=== PATIENT | male | born 1955 ===

== ENCOUNTER 2020-08-03 17:43 | Observation (INO) ==
[2020-08-03] MEDS ORDERED: GLUCAGON 1 MG VIAL IM PRN (21:28)
[2020-08-03] MEDS ORDERED: DEXTROSE 50% 25 GM/50 ML VIAL IV PRN (21:28)
[2020-08-03] MEDS ORDERED: ONDANSETRON 4 MG/2 ML VIAL IV PRN (21:28)
[2020-08-03] MEDS ORDERED: ACETAMINOPHEN 325 MG TABLET PO PRN (21:28)
[2020-08-03 22:27] LABS: Albumin 3.2 G/DL (3.4-5.0); Calcium 8.6 MG/DL (8.5-10.1); Osmolality,Calculated 292.4 MOS/KG (273-304); Potassium 4.7 MMOL/L (3.5-5.1)
[2020-08-04] MEDS: ENOXAPARIN 30 MG/0.3 ML SYRINGE SUBCUT SCH ×2 (04:13→22:25)
[2020-08-04 08:24] LABS: Protein/Creatinine Ratio,Urine 0.2 RATIO
[2020-08-04 08:33] LABS: Basophils # 0.1 10*3/uL (0.0-0.2); Basophils % 0.8 % (0.0-0.8); Eosinophils # 0.1 10*3/uL (0.0-0.87); Eosinophils % 0.8 % (0.00-10.9); Hematocrit 41.7 VOL% (42.0-52.0); Hemoglobin 12.8 GM/DL (14.0-18.0); Immature Granulocytes % 0.7 %; Immature Granulocytes Absolute 0.06 #; Lymphocytes # 1.6 10*3/uL (1.4-4.0); Lymphocytes % 18.1 % (21.2-54.2); Mean Corpuscular HGB Conc 30.7 GM/DL (32-36); Mean Corpuscular Volume 86.9 FL (87-102); Mean Platelet Volume 10.7 FL (9.6-12.0); Monocytes % 11.4 % (1.7-12.7); Neutrophils % 68.2 % (38.7-73.9); Platelet Count 201 T/CUMM (130-400); Red Cell Distribution Width 17.8 % (9.3-17.3)
[2020-08-04 09:00] LABS: Albumin 3.2 G/DL (3.4-5.0); Bilirubin,Total 1.2 MG/DL (0.2-1.0); Calcium 8.6 MG/DL (8.5-10.1); Osmolality,Calculated 289.4 MOS/KG (273-304); Potassium 4.5 MMOL/L (3.5-5.1); Total Protein 7.1 G/DL (6.4-8.3)
[2020-08-04] MEDS ORDERED: FUROSEMIDE 40 MG TABLET PO SCH (09:00)
[2020-08-04] MEDS ORDERED: LEVOFLOXACIN 750 MG TABLET PO SCH (09:00)
[2020-08-04] MEDS: INSULIN REGULAR 100 UNIT/ML SUBCUT SCH ×4 (09:21→21:44)
[2020-08-04] MEDS: PANTOPRAZOLE 40 MG TABLET PO SCH (09:29)
[2020-08-04] MEDS: ASPIRIN EC 81 MG TABLET PO SCH (09:30)
[2020-08-04] MEDS ORDERED: SKIN HEALING OINT (AQUAPHOR) 50 GM TUBE TOP PRN (11:17)
[2020-08-04] MEDS ORDERED: CLOTRIMAZOLE 1% CREAM 15 GM TUBE TOP PRN (11:17)
[2020-08-04] MEDS ORDERED: FUROSEMIDE 40 MG/4 ML VIAL IM SCH (16:00)
[2020-08-04] MEDS: NYSTATIN CREAM 15 GM TUBE TOP SCH ×2 (16:04→21:56)
[2020-08-04] MEDS: carvediloL 3.125 MG TABLET PO SCH (21:44)
[2020-08-04] MEDS ORDERED: ZALEPLON 5 MG CAPSULE PO PRN (21:54)
[2020-08-05 06:13] LABS: Basophils # 0.1 10*3/uL (0.0-0.2); Basophils % 0.9 % (0.0-0.8); Eosinophils # 0.1 10*3/uL (0.0-0.87); Eosinophils % 0.9 % (0.00-10.9); Hematocrit 36.9 VOL% (42.0-52.0); Hemoglobin 11.4 GM/DL (14.0-18.0); Immature Granulocytes % 0.4 %; Immature Granulocytes Absolute 0.03 #; Lymphocytes # 1.4 10*3/uL (1.4-4.0); Mean Corpuscular HGB Conc 30.9 GM/DL (32-36); Monocytes % 13.8 % (1.7-12.7); Platelet Count 164 T/CUMM (130-400); Red Blood Count 4.29 MC/CUMM (3.8-5.5); Red Cell Distribution Width 17.5 % (9.3-17.3); White Blood Count 7.7 T/CUMM (4-12)
[2020-08-05 06:31] LABS: Calcium 8.6 MG/DL (8.5-10.1); Osmolality,Calculated 289.5 MOS/KG (273-304); Thyroid Stimulating Hormone 3.02 uIU/ml (0.358-3.74)
[2020-08-05] MEDS ORDERED: FUROSEMIDE 40 MG/4 ML VIAL IV SCH (08:00)
[2020-08-05] MEDS: INSULIN REGULAR 100 UNIT/ML SUBCUT SCH ×2 (08:38→11:50)
[2020-08-05] MEDS: PANTOPRAZOLE 40 MG TABLET PO SCH (10:07)
[2020-08-05] MEDS: ASPIRIN EC 81 MG TABLET PO SCH (10:07)
[2020-08-05 11:19] VITALS: BP 118/80
[2020-08-05] MEDS: carvediloL 3.125 MG TABLET PO SCH (11:35)
[2020-08-05] MEDS: NYSTATIN CREAM 15 GM TUBE TOP SCH (11:35)
== END 2020-08-05 16:10 | disposition home or self-care (01) ==
LOC: SUATTDRO 20:49 → N.3E 20:49 → INTOOBSV 20:49
PROVIDERS: ADMIT Internal Medicine; ATTEND Internal Medicine